=== PATIENT | female | born 1965 | race Caucasian/White ===

== ENCOUNTER 2017-12-13 20:05 | Inpatient (IN) | payer MEDICAID, OTHER ==
[~2017-12-13] VITALS: Ht 149.9 cm; Wt 54.4 kg
[~2017-12-13 20:05] MED LIST: ALPR2TAB2 PO; HYDR-4001 PO; METF500T6 PO; QUET100T PO; SERT100T MT
[2017-12-13] MEDS ORDERED: KETOROLAC 30MG/ML VIAL IV STA (22:46)
[2017-12-13] MEDS ORDERED: ONDANSETRON HCL 4MG/2ML VIAL IV STA (22:46)
[2017-12-13] MEDS ORDERED: SODIUM CHLORIDE 0.9% 1,000 ML IV ONE (22:46)
[2017-12-14] VITALS (8 sets, daily range): BP systolic 102–122; BP diastolic 67–71
[2017-12-14 00:47] LABS: HEMATOCRIT. 37.1 % (36.0-48.0); HEMOGLOBIN. 12.9 g/dL (12.0-16.0); MEAN CORPUSCULAR HEMOGLOBIN 31.5 pg (28.0-32.0); MEAN CORPUSCULAR VOLUME 90.4 fL (81.0-99.0); MEAN PLATELET VOLUME 8.3 fl (7.4-10.4); PLATELET 97 x1000/uL (130-400); RED CELL DISTRIBUTION WIDTH 12.9 % (11.6-14.6)
[2017-12-14 00:50] LABS: CHLORIDE 107 mEq/L (98-107)
[2017-12-14] MEDS ORDERED: MORPHINE SULFATE 2 MG/ML CPJ (NOT FOR IM USE) IV ONE (01:00)
[2017-12-14 01:37] LABS: PLATELET ESTIMATE DECREASED
[2017-12-14 01:40] LABS: CLARITY URINE CLOUDY (CLEAR); COLOR URINE YELLOW (YELLOW); KETONES URINE NEGATIVE (NEGATIVE); LEUKOCYTE ESTERASE URINE 2+ (NEGATIVE); NITRITE URINE NEGATIVE (NEGATIVE); OCCULT BLOOD URINE 1+ (NEGATIVE); PROTEIN URINE NEGATIVE (NEGATIVE); SPECIFIC GRAVITY URINE 1.021 (1.005-1.030)
[2017-12-14] MEDS ORDERED: DEXT 5%/0.45% NACL 1000ML 1,000 ML IV SCH (07:32)
[2017-12-14] MEDS ORDERED: ONDANSETRON HCL 4MG/2ML VIAL IV PRN (07:45)
[2017-12-14] MEDS ORDERED: PANTOPRAZOLE SODIUM 40 MG/VIAL IV SCH (07:45)
[2017-12-14] MEDS ORDERED: MORPHINE SULFATE 4 MG/ML CPJ (NOT FOR IM USE) IV PRN (07:45)
[2017-12-14] MEDS ORDERED: IPRATROPIUM/ALBUTEROL 0.5-3(2.5)MG/3ML NEB INH PRN (08:00)
[2017-12-14] MEDS ORDERED: ONDANSETRON 4MG ODT PO PRN (08:00)
[2017-12-14] MEDS ORDERED: DEXTROSE 50% WATER 50ML SYRINGE IV PRN (09:00)
[2017-12-14] MEDS: INSULIN LISPRO 100 UNITS/ML SUBCUT SCH ×3 (09:17→17:50)
[2017-12-14] MEDS: BLOOD SUGAR DIAGNOSTIC STRIP TEST SCH ×3 (09:33→18:14)
[2017-12-14] MEDS ORDERED: KETOROLAC 15MG/ML VIAL IV PRN (10:45)
[2017-12-14] MEDS ORDERED: NA PHOS,M-B/NA PHOS,DI-BA ENEMA 118ML PR NR (11:00)
[2017-12-14] MEDS ORDERED: BISACODYL 5MG TABLET PO NR (11:00)
== END 2017-12-14 19:50 | disposition home or self-care (01) ==
LOC: ER 20:05 → 6EST 12-14 01:00 → ENRESERV 12-14 01:32
PROVIDERS: ADMIT Internal Medicine; ATTEND Internal Medicine
DX: K80.20 Calculus of gallbladder without cholecystitis without obstruction (principal); K85.10 Biliary acute pancreatitis without necrosis or infection; R16.2 Hepatomegaly with splenomegaly, not elsewhere classified; F25.9 Schizoaffective disorder, unspecified; I10 Essential (primary) hypertension; E11.9 Type 2 diabetes mellitus without complications; F43.10 Post-traumatic stress disorder, unspecified; K56.41 Fecal impaction; F17.210 Nicotine dependence, cigarettes, uncomplicated; F30.9 Manic episode, unspecified; B19.20 Unspecified viral hepatitis C without hepatic coma; N39.0 Urinary tract infection, site not specified; R74.0 Nonspecific elevation of levels of transaminase and lactic acid dehydrogenase [LDH]; Z79.84 Long term (current) use of oral hypoglycemic drugs; Z79.899 Other long term (current) drug therapy
CPT/HCPCS: 36415; 74176; 80053; 81003; 82962; 83690; 85025; 87077; 87086; 96361; 96374; 96375; 99285; C9113; J1885; J2270; J2405; J3490; J7030

== ENCOUNTER 2024-05-03 18:48 | Emergency (ER) | payer MEDICAID, OTHER ==
[~2024-05-03] VITALS: Ht 162.6 cm; Wt 58.0 kg
[~2024-05-03 18:48] MED LIST changes: +METF-414 PO; -METF500T6 PO
[2024-05-03 18:52] VITALS: O2SAT 99
[2024-05-03] MEDS ORDERED: ALBUTEROL (18:52)
[2024-05-03] MEDS ORDERED: IPRATROPIUM BROMIDE (0.02%) 0.5MG/2.5ML NEB HHN STA (19:42)
[2024-05-03] MEDS: METHYLPREDNISOLONE SOD SUCC 125MG/2ML (ACT-O-VIAL) IV STA (19:56)
[2024-05-03] MEDS ORDERED: ALBUTEROL (0.083%) 2.5MG/3ML NEB HHN SCH (20:00)
[2024-05-03 20:11] LABS: HEMATOCRIT. 23.4 % (36.0-48.0); HEMOGLOBIN. 7.9 g/dL (12.0-16.0); MEAN CORPUSCULAR HEMOGLOBIN 40.1 pg (28.0-32.0); MEAN CORPUSCULAR HGB CONC 33.7 g/dL (31.0-37.0); MEAN CORPUSCULAR VOLUME 118.9 fL (81.0-99.0); MEAN PLATELET VOLUME 8.3 fl (7.4-10.4); PLATELET 58 x1000/uL (130-400); RED BLOOD CELL COUNT 1.97 mill/uL (4.2-5.4); RED CELL DISTRIBUTION WIDTH 17.9 % (11.6-14.6)
[2024-05-03 20:12] LABS: DIFFERENTIAL COMMENT 1
[2024-05-03 20:18] LABS: CHLORIDE 99 mEq/L (98-107); POTASSIUM 4.1 mEq/L (3.5-5.1); SODIUM 138 mEq/L (136-145)
[2024-05-03 20:19] LABS: CARBON DIOXIDE 36 mEq/L (21-32)
[2024-05-03 20:20] LABS: CALCIUM 8.6 mg/dL (8.7-10.4)
[2024-05-03 20:24] LABS: CREATININE 0.8 mg/dL (0.6-1.0); GLUCOSE 187 mg/dL (70-105)
[2024-05-03 20:25] LABS: TROPONIN I HIGH SENSITIVITY 4 ng/L (3.0-34); UREA NITROGEN BLOOD 7 mg/dL (9-23)
[2024-05-03 20:40] LABS: ANISOCYTOSIS 1+; PLATELET ESTIMATE MARKEDLY DECREASED
[2024-05-03] MEDS: SODIUM CHLORIDE 0.9% (SEPSIS BOLUS) IV ONE (21:18)
[2024-05-03] MEDS: PIPERACILLIN/TAZO 3.375G/50ML 50 ML IV ONE (21:34)
[2024-05-03 21:46] LABS: LACTIC ACID 2.8 mmol/L (0.4-2.0)
[2024-05-03] MEDS: VANCOMYCIN 1G PREMIX 200 ML IV ONE (22:49)
[2024-05-03] MEDS: ACETAMINOPHEN 325MG TABLET PO ONE (22:49)
[2024-05-03] MEDS: VANCOMYCIN 1G PREMIX 200 ML IV NR (22:50)
[2024-05-03 23:46] VITALS: BP 129/81; PULSE 103; RESP 18; TEMP 37.11408; O2SAT 100
== END 2024-05-04 00:05 | disposition short-term general hospital (02) ==
LOC: ER 18:48 → CANBEDREQ 21:07 → ER 05-04 00:05
DX: J96.91 Respiratory failure, unspecified with hypoxia (principal); J18.9 Pneumonia, unspecified organism; E11.9 Type 2 diabetes mellitus without complications; F41.9 Anxiety disorder, unspecified; G89.29 Other chronic pain; M54.50 Low back pain, unspecified; I10 Essential (primary) hypertension; J44.0 Chronic obstructive pulmonary disease with (acute) lower respiratory infection; Z79.899 Other long term (current) drug therapy; Z79.84 Long term (current) use of oral hypoglycemic drugs
CPT/HCPCS: 80048; 83880; 83605; 85025; 87040; 84484; 36415; 84145; 71045; 93005; 96367; 96365; 96375; 99291; J2919; J2543; J3370; J7030; Z7610; 96361